=== PATIENT | male | born 1970 | race African-American/Black ===

== ENCOUNTER 2024-04-06 18:30 | Emergency (ER) | payer OTHER ==
[2024-04-06 18:41] VITALS: BP 134/88; PULSE 87; RESP 18; TEMP 98.4; BMI 23.5
[2024-04-06] MEDS: LIDOCAINE 2.5%/PRILOCAINE 2.5% 30 GRAM TUBE TP ONE (19:48)
== END 2024-04-06 20:03 | disposition home or self-care (01) ==
LOC: JERFT 18:30
DX: L03.011 Cellulitis of right finger (principal); M79.89 Other specified soft tissue disorders
CPT/HCPCS: 99283-25